=== PATIENT | female | born 1960 | race Caucasian/White ===

== ENCOUNTER 2020-01-03 17:35 | Emergency (ER) | payer MEDICARE, MEDICAID ==
[~2020-01-03] VITALS: Ht 165.1 cm; Wt 79.4 kg
[2020-01-03 18:00] VITALS: BP 120/91
--- NOTE | 2020-01-03 19:19 | ER.PDOC ---
General Chief Complaint: Extremities Stated Complaint: NEUROPATHY Time seen by MD: 19:11 Source: patient Exam Limitations: no limitations History of Present Illness Initial Comments Patient has Diabetic Neuropathy and ran out of her Gabapentin and Hydrocodone for about a Month. He is requesting for a refill because of pain. Severity: moderate Exacerbated By: nothing Relieved By: nothing Allergies: Coded Allergies: Penicillins (Verified Allergy, Unknown, HIVES, 01/03/20) hydromorphone (Verified Allergy, Unknown, HIVES, 01/03/20) meperidine (Verified Allergy, Unknown, HIVES, 01/03/20) Past Medical History Medical History: coronary artery disease, congestive heart failure, diabetes, high cholesterol, vascular disease Surgical History: cardiac cath, cholecystectomy, stent Social History Alcohol Use: none Drug Use: none Review of Systems Constitutional: no symptoms reported EENTM: no symptoms reported Respiratory: no symptoms reported Cardiovascular: no symptoms reported Gastrointestinal: no symptoms reported Genitourinary: no symptoms reported Musculoskeletal: see HPI All Other Systems: Reviewed and Negative Physical Exam General Appearance: Alert, No Apparent Distress Lower Extremity: nml inspection, no pedal edema, tenderness (both feet) Joint Exam: nml ROM Vascular: no vascular compromise, pulses full/equal Neuro/Psych: sensation nml, motor nml, oriented x3, CN's nml as tested, mood/affect nml Skin: color nml, warm/dry, no rash Back/Neck: nml inspection Respiratory: no resp distress, breath sounds nml CVS: reg rate & rhythm, heart sounds nml Abdomen: non-tender, no organomegaly, no bruit/mass Comments Amputation of right foot toes. Results/Orders Results/Orders Vital Signs Date Time Temp Pulse Resp B/P (MAP) Pulse Ox O2 Delivery O2 Flow Rate FiO2 01/03/20 18:00 98.4 97 16 120/91 (101) 97 Room Air 01/03/20 18:00 98.4 97 16 01/03/20 18:00 98.4 82 18 97 Progress Progress Told patient that I will partially refill Gabapentin but will nee to follow up with her PCP for Hydrocodone refill. Departure Time of Disposition: 19:17 Disposition: 01 HOME, SELF-CARE Impression: Primary Impression: Diabetic neuropathy, painful Condition: Stable Referrals: PCP,UNKNOWN (PCP) PRIMARY CARE PROVIDER Additional Instructions: Gabapentin F/U with your PCP in 2-3 days Return to ED if worsening pain or concerns. Duration or Time Spent with Pa: 10 min DILAN GOOD MD Jan 03, 2020 19:19
[2020-01-03 19:31] VITALS: BP 130/60
== END 2020-01-03 19:33 | disposition home or self-care (01) ==
LOC: ER 17:35
DX: E11.42 Type 2 diabetes mellitus with diabetic polyneuropathy (principal); E78.00 Pure hypercholesterolemia, unspecified; I25.10 Atherosclerotic heart disease of native coronary artery without angina pectoris; I50.9 Heart failure, unspecified; Z88.0 Allergy status to penicillin; Z88.5 Allergy status to narcotic agent; Z90.49 Acquired absence of other specified parts of digestive tract
CPT/HCPCS: 99281